=== PATIENT | male | born 1990 | race Caucasian/White ===

== ENCOUNTER 2018-03-22 19:05 | Emergency (ER) | payer MEDICAID ==
[~2018-03-22] VITALS: Ht 170.2 cm; Wt 68.5 kg
[2018-03-22 19:09] VITALS: Ht 170.2 cm; Wt 68.5 kg
[2018-03-22 21:13] VITALS: BP 103/64
== END 2018-03-22 21:13 | disposition home or self-care (01) ==
LOC: ED 19:05
DX: S00.451A Superficial foreign body of right ear, initial encounter (principal); F17.210 Nicotine dependence, cigarettes, uncomplicated; F15.10 Other stimulant abuse, uncomplicated; H60.501 Unspecified acute noninfective otitis externa, right ear; Z71.6 Tobacco abuse counseling; X58.XXXA Exposure to other specified factors, initial encounter; Y93.89 Activity, other specified; Y92.89 Other specified places as the place of occurrence of the external cause; Y99.8 Other external cause status
CPT/HCPCS: 99406; J1885